=== PATIENT | female | born 1950 | race Caucasian/White ===

== ENCOUNTER 2020-01-16 07:57 | Outpatient (CLI) | payer OTHER | END 2020-01-16 08:09 | disposition home or self-care (01) | LOC: SONOGRAMA 07:57 → MAMO-SONO 08:15 | PROVIDERS: ATTEND Internal Medicine Gastroenterology | DX: K21.9 Gastro-esophageal reflux disease without esophagitis (principal); R10.13 Epigastric pain ==

== ENCOUNTER 2020-11-27 09:50 | Emergency (ER) | payer OTHER ==
[~2020-11-27] VITALS: Ht 165.1 cm; Wt 109.3 kg
[2020-11-27] MEDS ORDERED: AVAPRO75 MG (10:01)
[2020-11-27] MEDS ORDERED: PROTONIX20 MG (10:02)
== END 2020-11-27 10:51 | disposition home or self-care (01) ==
LOC: ER 09:50
DX: M54.5 Low back pain (principal); M62.830 Muscle spasm of back

== ENCOUNTER 2021-02-24 09:26 | Outpatient (CLI) | payer OTHER ==
[~2021-02-24 09:26] MED LIST: AVAPRO75 MG; PROTONIX20 MG
== END 2021-02-24 09:34 | disposition home or self-care (01) ==
LOC: RX STUDY 09:26
PROVIDERS: ATTEND Internal Medicine Gastroenterology
DX: K22.5 Diverticulum of esophagus, acquired (principal); K29.30 Chronic superficial gastritis without bleeding